=== PATIENT | female | born 1975 ===

== ENCOUNTER 2017-10-29 06:35 | Observation (INO) | payer BC, MEDICAID ==
[2017-10-27 11:03] VITALS: BMI 40.8
[2017-10-29] MEDS ORDERED: Propofol 10 mg/ml Inj (20 ML) ONE ×2 (07:17→14:30)
[2017-10-29] MEDS ORDERED: Rocuronium 10 mg/ml (5 ml) ONE ×2 (07:17→12:44)
[2017-10-29] MEDS ORDERED: ePHEDrine 50 mg/ml Inj ONE (07:17)
[2017-10-29] MEDS ORDERED: Succinylcholine 200 mg/10 ml Inj IV ONE (07:17)
[2017-10-29] MEDS ORDERED: Phenylephrine 10 mg/ml Inj ONE (07:29)
[2017-10-29] MEDS ORDERED: Methylene Blue 10 mg/mL(10ml) IV ONE ×2 (07:55→13:48)
[2017-10-29] MEDS ORDERED: Bupivacaine 0.5% Inj(30mL) ONE (07:55)
[2017-10-29] MEDS ORDERED: SULFANILAMIDE (AVC) VAG CREAM VG ONE ×2 (07:55→14:29)
[2017-10-29] MEDS ORDERED: Lactated Ringer's 1,000 ML IV ONE ×3 (07:59→10:40)
[2017-10-29] MEDS ORDERED: Midazolam 2 MG/2 ML VIAL ONE (09:30)
[2017-10-29] MEDS ORDERED: Neostigmine Methylsulfate 3mg/3ml Syringe IV ONE (09:31)
[2017-10-29] MEDS ORDERED: Neostigmine Methylsulfate 2 MG/2 ML ML IV ONE (09:32)
[2017-10-29] MEDS ORDERED: Albuterol HFA 90 mcg/actuation (8 g) ONE (09:35)
[2017-10-29] MEDS ORDERED: Dexamethasone 4 mg/1 ml ONE (10:46)
[2017-10-29] MEDS ORDERED: Sevoflurane - Inhalation Anesthetic Liq (250 ml) ONE (11:13)
[2017-10-29] MEDS ORDERED: HEMOSTATIC MATRIX 10 ML DIS.NEEDLE TOP ONE (13:59)
[2017-10-29] MEDS ORDERED: Naloxone 0.4 mg/ml Inj (Adult) IVP PRN (15:04)
[2017-10-29] MEDS: HYDROmorphone 0.5 mg/0.5 ml ISec IVP PRN ×4 (15:08→15:54)
[2017-10-29] MEDS ORDERED: Oxycodone/Acetaminophen 5/325 mg Tab PO PRN (15:09)
[2017-10-29] MEDS ORDERED: HYDROmorphone 0.5 mg/0.5 ml ISec ONE (15:25)
[2017-10-29] MEDS: Clindamycin 600mg/50ml NS 600 MG/50 ML BAG IVPB SCH (17:53)
[2017-10-29] MEDS: Lactated Ringer's 1,000 ML IV SCH (20:00)
[2017-10-30] MEDS: Clindamycin 600mg/50ml NS 600 MG/50 ML BAG IVPB SCH ×2 (03:00→10:01)
[2017-10-30] MEDS: Lactated Ringer's 1,000 ML IV SCH (03:00)
[2017-10-30 06:30] VITALS: RESP 20
[2017-10-30 08:26] LABS: HEMOGLOBIN 9.1 g/dL (12.0-16.0); MEAN CELL VOLUME 83.7 fl (81.0-99.0); MEAN CORPUSCULAR HEMOGLOBIN 26.3 pg (27.0-31.0); MEAN CORPUSCULAR HGB CONC 31.4 g/dL (33.0-37.0); RBC 3.45 Mil/uL (3.80-5.20); RED CELL DISTRIBUTION WIDTH 16.3 % (11.5-14.5); WHITE BLOOD COUNT 9.1 K/uL (4.8-10.8)
[2017-10-30 11:57] LABS: BLOOD UREA NITROGEN 10 mg/dl (7-17); GFR AFRICAN-AMERICAN > 60; GFR NON-AFRICAN AMERICAN > 60
--- NOTE | 2017-10-30 13:51 | CP.PCM.DIS ---
Provider - Provider Date of Admission: 10/29/17 15:09 Attending physician: Beata Grullon MD Primary care physician: Kelsey Gray MD Time Spent in preparation of Discharge (in minutes): 30 Diagnosis - Discharge Diagnosis (1) S/P hysterectomy Status: Acute Hospital Course - Lab Results Lab Results: Most Recent Lab Values WBC 9.1 K/uL (4.8-10.8) 10/30/17 08:03 RBC 3.45 Mil/uL (3.80-5.20) L 10/30/17 08:03 Hgb 9.1 g/dL (12.0-16.0) L D 10/30/17 08:03 Hct 28.9 % (34.0-47.0) L 10/30/17 08:03 MCV 83.7 fl (81.0-99.0) 10/30/17 08:03 MCH 26.3 pg (27.0-31.0) L 10/30/17 08:03 MCHC 31.4 g/dL (33.0-37.0) L 10/30/17 08:03 RDW 16.3 % (11.5-14.5) H 10/30/17 08:03 Plt Count 216 K/uL (130-400) 10/30/17 08:03 BUN 10 mg/dl (7-17) 10/30/17 11:01 Creatinine 0.7 mg/dl (0.7-1.2) 10/30/17 11:01 Est GFR ( Amer) > 60 10/30/17 11:01 Est GFR (Non-Af Amer) > 60 10/30/17 11:01 - Hospital Course Hospital Course: 42 yo F patient s/p Davinci Hysterectomy doing well on POD 1, patient asymptomatic at discharge time, pain well controlled with medication, PO tolerated well,reports passing gases. Patient was discharged home with clearance and follow up instructions with Dr Grullon as outpatient next Wednesday. Discharge Exam - Head Exam Head Exam: ATRAUMATIC, NORMOCEPHALIC - Respiratory Exam Respiratory Exam: Clear to PA & Lateral - Cardiovascular Exam Cardiovascular Exam: REGULAR RHYTHM. absent: Systolic Murmur - GI/Abdominal Exam GI & Abdominal Exam: Normal Bowel Sounds, Soft, Tenderness (mild to palpation) Additional comments: Dressings clean, dry, intact. Discharge Plan - Follow Up Plan Condition: GOOD Disposition: HOME/ ROUTINE Instructions: Cephalexin (By mouth), Ibuprofen (By mouth), Oxycodone/ Acetaminophen (By mouth), Laxative, Stool Softeners (By mouth), Cystoscopy (DC) , Lysis of Abdominal Adhesions (DC), Robot Assisted Laparoscopic Hysterectomy ( DC) Additional Instructions: ANY PROBLEMS (FEVER,SEVERE PAIN,UNABLE TO VOID,DRAINAGE,BLEEDING OR ANY CONCERNS ) CALL DOCTOR OR GO TO EMERGENCY ROOM 911 FOR EMERGENCY NO HEAVY LIFTING NO STRENUOUS EXERCISE NO SEX NO TUB BATHS NO DOUCHING NO TAMPONS HOME MEDICATIONS: FEOSOL- 1 TABLET BY MOUTH DAILY KEFLEX- 1 TABLET BY MOUTH EVERY 8 HOURS PERCOCET- 1 OR 2 TABLETS EVERY 6 HOURS NEEDED FOR PAIN MOTRIN- 800 MG EVERY 6 HOURS NEEDED FOR PAIN COLACE- 1 CAPSULE BY MOUTH TWICE A DAY FOLLOW -UP WITH DR. GALLO OCONNOR 11/02/2017 IN [facility] OFFICE Referrals: Kelsey Gray MD [Primary Care Provider] - Beata Grullon MD [Medical Doctor] -
[2017-10-30 17:07] VITALS: BP 115/59; PULSE 79; TEMP 99.1; O2SAT 98
--- NOTE | 2017-11-02 08:46 | OP ---
PROCEDURE DATE: 10/29/2017 PREOPERATIVE DIAGNOSES: A 42-year-old female with symptomatic uterine fibroids, adenomyosis, chronic pelvic pain. POSTOPERATIVE DIAGNOSES: Fibroids, adenomyosis, chronic pelvic pain, dense adhesions, which is endopelvic adhesions noted all around. PROCEDURE: Robotic total hysterectomy, cystoscopy as well as lysis of adhesions. SURGEON: Dr. Grullon. PUSH BUTTON SWITCH ASSEMBLER: Dr. Danyel Torres TYPE OF ANESTHESIA: General. ESTIMATED BLOOD LOSS: Approximately 500 mL COMPLICATIONS: None. DESCRIPTION OF PROCEDURE: The patient was informed of the risks, benefits and alternative of the procedure, risks that are included infection, bleeding, damage of surrounding organ tissue, damage to the bowel, to the bladder, fistula formation as well as complication such as even . All questions were answered prior to going to be operating room and an informed consent was obtained. The patient was then taken to the operating room, administered general anesthesia which has been found to be adequate. The patient was then placed in dorsal lithotomy position with sterilely prepped and draped in the usual manner. A Loera catheter was placed in the bladder. A weighted speculum was placed into the vaginal vault. A single tooth tenaculum was placed in the anterior lip of the cervix and the cervical os was dilated and then VCare device was utilized in order to manipulate the uterus. In that particular instance once that was completed, the single-tooth tenaculum was then removed and all instruments actually were removed from the vagina. In that particular instance, attention was turned to the abdomen, which a horizontal supraumbilical incision was made with the scalpel and Veress needle was placed in the abdominal cavity, to the Veress needle carbon dioxide was infused using pneumoperitoneum, was obtained 4 liters of CO2 gas was given. The Veress needle was then removed and an 8 mm trocar and sleeve were then advanced in the abdomen without any difficulty. The trocar was then removed and robotic laparoscope was placed in the abdominal cavity. The uterus was found to be diffusely enlarged. It was noted that she had multiple adhesions. The omentum was actually covering the entire uterus. The uterus looked like evidence of adenomyosis as well as aside from that she had some fibroids. So local anesthetic was then instilled at the site of all the ports prior to placing the surgical ports in which 4 or more 8 mm surgical ports were placed. They were just by the umbilicus and lateral to the rectus abdominal muscles bilaterally. These ports were then placed in the abdomen under direct visualization. The biology research assistant's port was then placed just beneath the ribs in the left upper quadrant of the abdomen. The da Christine robot was then backed with the surgical ports. In left arm was placed a plasma kinetic device and the right arm the hot scissors. Due to the fact that there was multiple adhesions, it was noted that the complete surveillance of lysis of adhesion was then performed using the PK and hot scissors. The round ligaments on the left side were cauterized and cut, the left side of the uterovesical peritoneal was then incised, forming the left side of the bladder flap. The left uterine vascularization was then isolated and cauterized. Excellent hemostasis was noted. These adhesions were carefully lysed using the hot scissors. On both sides, the ovarian ligament clamped with PK and cut with hot scissors, excellent hemostasis was noted. Then the same thing was performed on the right side which visualization of the round ligament was basically clamped with PK and cut with hot scissors. Lysis of adhesions were performed. The bladder flap was then also performed. So, in that particular instance once the uterine arteries both sides were cauterized, the V-Loc was pushed up, pushing the bladder and in that particular instance using the PK circumferential, the cuff was then identified and went all around and upon that completion, the uterus was then removed from the vagina. The vaginal cuff was closed using V-Loc sutures. The pelvis was then irrigated copiously with normal saline. Hemostasis was found to be secured and Floseal was placed at the cuff. A 12-mm supraumbilical surgical ports, all the ports were removed and closed with 3-0 Monocryl. Excellent hemostasis was noted. In that particular instance, indigo carmine was given intravenously as discussed. then performed, both urethral orifice were identified. There was noted to be blue dye extravanating from both ureteral orifice. The Loera was then placed back into the bladder. Excellent hemostasis was noted. All sponge, needle count were correct x2. The urine in the Loera bag was noted to be clear blue. The patient tolerated the procedure quite well. She was then taken to recovery room in stable condition. Beata Grullon MD [facility] # [id number]
== END 2017-10-30 19:55 | disposition home or self-care (01) ==
LOC: H.OPSURG 06:35 → H.PEDS 15:09
PROVIDERS: ADMIT Obstetrics & Gynecology; ATTEND Obstetrics & Gynecology
DX: D25.9 Leiomyoma of uterus, unspecified (principal); N80.0 Endometriosis of uterus; G89.29 Other chronic pain; N88.8 Other specified noninflammatory disorders of cervix uteri; N73.6 Female pelvic peritoneal adhesions (postinfective)
CPT/HCPCS: 36415; 58572; 82565; 84520; 85027; 88307; 94770; C2615; G0378; J0330; J1100; J1170; J1885; J2001; J2250; J2370; J2405; J2704; J2710; J3010; J7030; J7120